=== PATIENT | female | born 1985 | race African-American/Black ===

== ENCOUNTER 2021-12-28 04:15 | Day surgery (SDC) | payer OTHER ==
[2021-12-27 09:48] VITALS: BMI 28.9
[2021-12-28] MEDS ORDERED: LIDOCAINE HCL/PF 2% SDV 5ML VIAL ONE (12:48)
[2021-12-28] MEDS ORDERED: MIDAZOLAM HCL 2 MG/2 ML SINGLE DOSE VIAL ONE (12:50)
[2021-12-28] MEDS ORDERED: SUCCINYLCHOLINE CHLORIDE 200 MG/10 ML SYRINGE ONE (12:50)
[2021-12-28] MEDS ORDERED: PROPOFOL 20 ML ONE ×2 (12:50)
[2021-12-28] MEDS ORDERED: DEXAMETHASONE SOD PHOSPHATE 4 MG/1 ML VIAL ONE (12:51)
[2021-12-28] MEDS ORDERED: ONDANSETRON 4 MG/2 ML VIAL ONE (12:51)
[2021-12-28] MEDS ORDERED: KETOROLAC TROMETHAMINE 30 MG/1 ML VIAL ONE (12:51)
[2021-12-28] MEDS ORDERED: ONDANSETRON 4 MG/2 ML VIAL IVPUSH PRN ×2 (13:05→13:38)
[2021-12-28] MEDS ORDERED: oxyCODONE HCL 5 MG TABLET PO PRN ×3 (13:05→13:38)
[2021-12-28] MEDS ORDERED: LACTATED RINGERS SOLUTION 1,000 ML IV SCH (13:15)
[2021-12-28] MEDS ORDERED: ceFAZolin SODIUM 1 GM VIAL ONE (13:30)
[2021-12-28] MEDS ORDERED: ceFAZolin SODIUM 1 GM VIAL IVPB ONE (13:31)
[2021-12-28] MEDS ORDERED: IBUPROFEN 600 MG TABLET (FP) PO PRN (13:38)
[2021-12-28] MEDS ORDERED: IBUPROFEN 800 MG/8 ML IJ IVPB PRN (13:38)
[2021-12-28] MEDS ORDERED: ELECTROLYTE-148 SOLN 1,000 ML IV SCH (13:45)
[2021-12-28 16:13] VITALS: BP 116/74; PULSE 62; TEMP 98
== END 2021-12-28 16:00 | disposition home or self-care (01) ==
LOC: JASU-SURG 04:15
PROVIDERS: ATTEND Obstetrics & Gynecology
PROC: 10D17ZZ Extraction of Products of Conception, Retained, Via Natural or Artificial Opening (ICD-10-PCS; principal; 2021-12-28 14:00)
DX: O02.1 Missed abortion (principal)
CPT/HCPCS: 88305-TC; 94760

== ENCOUNTER 2023-02-11 10:00 | Inpatient (IN) | payer OTHER ==
[2023-02-11 12:46] LABS: BASO % 0.8 % (0-2.0); EOS % 1.4 % (0-4.5); HEMOGLOBIN 10.5 GM/dL (10.7-15.3); LYMPH % 19.5 % (8-40); MCH 25.4 pg (25.7-33.7); MCHC 32.8 g/dl (32.0-36.0); MEAN CELL VOLUME 77.6 fl (80-96); MEAN PLT VOLUME 7.5 fl (7.5-11.1); MONO % 8.2 % (3.8-10.2); NEUT % 70.1 % (42.8-82.8); PLATELET COUNT 312 10^3/uL (134-434); RBC 4.12 M/mm3 (3.60-5.2); RDW 15.3 % (11.6-15.6); WHITE BLOOD COUNT 7.4 K/mm3 (4.0-10.0)
[2023-02-11 12:53] LABS: INR 1.03 (0.83-1.09); PROTHROMBIN TIME (PATIENT) 11.9 SEC (9.7-13.0)
[2023-02-11 12:56] LABS: ACTIVATED PTT 24.9 SECONDS (25.2-36.5)
[2023-02-11 13:13] VITALS: BMI 36.9
[2023-02-11 13:43] LABS: CALCIUM 9.4 mg/dL (8.5-10.1); POTASSIUM 4.5 mmol/L (3.5-5.1)
[2023-02-11 13:45] LABS: BLOOD UREA NITROGEN 6.1 mg/dL (7-18)
[2023-02-11 13:47] LABS: CREATININE 0.7 mg/dL (0.55-1.3)
[2023-02-11] MEDS: ELECTROLYTE-148 SOLN 1,000 ML IV SCH ×2 (15:00→22:30)
[2023-02-11] MEDS ORDERED: OXYTOCIN 30 UNITS in 0.9% NS 30 UNIT/500 ML INFUS.BAG IVPB ONE (15:38)
[2023-02-11] MEDS: OXYTOCIN 30 UNITS in 0.9% NS 30 UNIT/500 ML INFUS.BAG IVPB SCH (16:00)
[2023-02-11] MEDS ORDERED: BUTORPHANOL TARTRATE 1 MG/ML VIAL IVPB ONE (20:39)
[2023-02-11] MEDS ORDERED: PROMETHAZINE HCL 25 MG/1 ML VIAL IVPB ONE (20:39)
[2023-02-12] MEDS: ELECTROLYTE-148 SOLN 1,000 ML IV SCH ×2 (06:15→14:00)
[2023-02-12] MEDS: OXYTOCIN 30 UNITS in 0.9% NS 30 UNIT/500 ML INFUS.BAG IVPB SCH (08:00)
[2023-02-12] MEDS ORDERED: FENTANYL/BUPIVACAINE/NS/PF - PCEA - 50 ML DISP.SYRIN EP ONE (12:42)
[2023-02-12] MEDS ORDERED: BUPIVACAINE HCL/PF 0.25% (2.5MG/ML) 10 ML VIAL ONE ×2 (12:55→19:38)
[2023-02-12] MEDS ORDERED: LIDO 2%/EPI 1:200000 PRESRVFRE (20 ML SDVIAL) ONE ×3 (12:55→18:01)
[2023-02-12] MEDS ORDERED: NALOXONE HCL 0.4 MG/ML VIAL IVPUSH PRN (16:25)
[2023-02-12] MEDS ORDERED: FENTANYL/BUPIVACAINE/NS/PF - PCEA - 50 ML DISP.SYRIN EP SCH (16:30)
[2023-02-12] MEDS ORDERED: METHYLERGONOVINE MALEATE 0.2 MG/1 ML AMP IM PRN (18:00)
[2023-02-12] MEDS ORDERED: ACETAMINOPHEN 325 MG TABLET (FP) PO PRN (18:00)
[2023-02-12] MEDS ORDERED: OXYTOCIN 10 UNITS/ML VIAL ONE (18:21)
[2023-02-12] MEDS ORDERED: morphine SULFATE/PF 1 MG/2 ML (2cc Syringe - QUVA) ONE (18:43)
[2023-02-12] MEDS ORDERED: ONDANSETRON 4 MG/2 ML VIAL ONE (18:50)
[2023-02-12] MEDS ORDERED: KETOROLAC TROMETHAMINE 30 MG/1 ML VIAL ONE (18:58)
[2023-02-12] MEDS ORDERED: MIDAZOLAM HCL 2 MG/2 ML SINGLE DOSE VIAL ONE ×2 (19:03→19:35)
[2023-02-12] MEDS ORDERED: PROPOFOL 20 ML ONE (19:03)
[2023-02-12] MEDS ORDERED: morphine SULFATE/PF 1 MG/2 ML (2cc Syringe - QUVA) EP ONE (19:20)
[2023-02-12 19:28] LABS: CORD HCO3 21.9 mmHg (20-29); CORD PCO2 66.6 mmHg (30-78); CORD pH 7.135 (7.14-7.44)
[2023-02-12 19:31] LABS: CORD BASE EXCESS -3.3 mmol/L (0-2); CORD HCO3 23.8 mmHg (20-29); CORD PCO2 51.2 mmHg (30-78); CORD pH 7.286 (7.14-7.44)
[2023-02-12] MEDS ORDERED: FENTANYL CITRATE/PF 50 MCG/ML VIAL ONE ×3 (19:33→19:52)
[2023-02-12] MEDS ORDERED: ONDANSETRON 4 MG/2 ML VIAL IVPUSH PRN (20:22)
[2023-02-12] MEDS: OXYTOCIN 20 UNITS in 0.9% NS 20 UNIT/1,000 ML INFUS.BAG IV SCH (21:13)
[2023-02-12] MEDS ORDERED: IBUPROFEN 800 MG/8 ML IJ IVPB PRN (23:30)
[2023-02-12] MEDS: ACETAMINOPHEN 1000 MG/100 ML BAG IVPB PRN (23:38)
[2023-02-12] MEDS: SIMETHICONE 80 MG TAB.CHEW (FP) PO PRN (23:39)
[2023-02-13] MEDS: OXYTOCIN 20 UNITS in 0.9% NS 20 UNIT/1,000 ML INFUS.BAG IV SCH ×2 (02:00→11:00)
[2023-02-13] MEDS: CEFAZOLIN SODIUM 2 GM in DEXTROSE 5%-WATER 100 ML IVPB SCH ×3 (02:46→17:32)
[2023-02-13] MEDS: SIMETHICONE 80 MG TAB.CHEW (FP) PO PRN ×4 (06:39→22:03)
[2023-02-13] MEDS: ACETAMINOPHEN 1000 MG/100 ML BAG IVPB PRN (06:40)
[2023-02-13 08:38] LABS: BASO % 0.6 % (0-2.0); EOS % 0.3 % (0-4.5); HEMATOCRIT 25.8 % (32.4-45.2); HEMOGLOBIN 8.4 GM/dL (10.7-15.3); LYMPH % 5.9 % (8-40); MCH 25.5 pg (25.7-33.7); MCHC 32.5 g/dl (32.0-36.0); MEAN CELL VOLUME 78.6 fl (80-96); MEAN PLT VOLUME 8.2 fl (7.5-11.1); MONO % 6.7 % (3.8-10.2); NEUT % 86.5 % (42.8-82.8); PLATELET COUNT 239 10^3/uL (134-434); RBC 3.28 M/mm3 (3.60-5.2); RDW 15.2 % (11.6-15.6); WHITE BLOOD COUNT 12.8 K/mm3 (4.0-10.0)
[2023-02-13] MEDS: oxyCODONE HCL 5 MG TABLET PO PRN (15:50)
[2023-02-13] MEDS ORDERED: BISACODYL 10 MG SUPP.RECT RC PRN (18:00)
[2023-02-13] MEDS: IBUPROFEN 600 MG TABLET (FP) PO PRN ×2 (18:12→22:03)
[2023-02-13 18:59] VITALS: RESP 18
[2023-02-14] MEDS: IBUPROFEN 600 MG TABLET (FP) PO PRN ×4 (02:49→19:54)
[2023-02-14] MEDS: SIMETHICONE 80 MG TAB.CHEW (FP) PO PRN ×3 (02:56→13:42)
[2023-02-14] MEDS: oxyCODONE HCL 5 MG TABLET PO PRN (22:50)
[2023-02-15] MEDS: IBUPROFEN 600 MG TABLET (FP) PO PRN ×2 (01:50→09:41)
[2023-02-15] MEDS: SIMETHICONE 80 MG TAB.CHEW (FP) PO PRN (01:50)
[2023-02-15 07:32] LABS: BASO % 0.6 % (0-2.0); EOS % 2.1 % (0-4.5); HEMATOCRIT 24.3 % (32.4-45.2); HEMOGLOBIN 8.1 GM/dL (10.7-15.3); LYMPH % 15.3 % (8-40); MCH 25.8 pg (25.7-33.7); MCHC 33.4 g/dl (32.0-36.0); MEAN CELL VOLUME 77.2 fl (80-96); MEAN PLT VOLUME 7.8 fl (7.5-11.1); MONO % 6.9 % (3.8-10.2); NEUT % 75.1 % (42.8-82.8); PLATELET COUNT 267 10^3/uL (134-434); RBC 3.15 M/mm3 (3.60-5.2); RDW 15.1 % (11.6-15.6); WHITE BLOOD COUNT 8.3 K/mm3 (4.0-10.0)
[2023-02-15 10:30] VITALS: BP 115/54; PULSE 71; TEMP 97.3
== END 2023-02-15 12:30 | disposition home or self-care (01) | DRG 788 ==
LOC: JDEL 10:00 → JLDR 12:00 → J3W 02-12 22:02
PROVIDERS: ADMIT Obstetrics & Gynecology; ATTEND Obstetrics & Gynecology
PROC: 10D00Z1 Extraction of Products of Conception, Low, Open Approach (ICD-10-PCS; principal; 2023-02-12)
DX: O34.211 Maternal care for low transverse scar from previous cesarean delivery (principal); O99.824 Streptococcus B carrier state complicating childbirth; O66.41 Failed attempted vaginal birth after previous cesarean delivery; Z3A.39 39 weeks gestation of pregnancy; Z37.0 Single live birth
CPT/HCPCS: 36415; 36600; 80048; 82803; 85025; 85610; 85730; 86780; 86850; 86870; 86900; 86901; 94010